=== PATIENT | female | born 1945 | race Two or more races ===

== ENCOUNTER → 2017-10-29 08:00 | Outpatient (CLI) | payer OTHER ==
[~2017-10-29 08:00] MED LIST: AMLODIPINE BESYL5 MG PO; COZAAR100 MG PO; GABAPENTIN300 MG PO; INTESTINEX1 CA1 PO; LOPRESSOR25 MG PO; METFORMIN HCL500 MG PO; NABUMETONE750 MG PO; OXYC1TAB9 PO; PROTONIX40 MG PO; SIMVASTATIN20 MG PO
== END | disposition home or self-care (01) ==
LOC: LAB 08:00 → ADM 09:30 → AMB-ENDOS 11-06 09:30 → EDSTATUS 11-06 09:30
DX: Z01.812 Encounter for preprocedural laboratory examination (principal); Z83.71 Family history of colonic polyps; D12.5 Benign neoplasm of sigmoid colon; D12.4 Benign neoplasm of descending colon; D12.3 Benign neoplasm of transverse colon; D12.2 Benign neoplasm of ascending colon; D12.1 Benign neoplasm of appendix; D12.0 Benign neoplasm of cecum; B35.6 Tinea cruris

== ENCOUNTER → 2017-12-31 | Day surgery (SDC) | payer OTHER | END | disposition home or self-care (01) | LOC: ADM 12-27 09:30 → AMB-ENDOS 07:32 | DX: K64.8 Other hemorrhoids (principal) ==

== ENCOUNTER 2020-02-23 05:31 | Day surgery (SDC) | payer OTHER | END 2020-02-23 10:25 | disposition home or self-care (01) | LOC: AMB-ENDOS 05:31 → CIR.AMB 12:15 | PROVIDERS: ATTEND Surgery | DX: K63.89 Other specified diseases of intestine (principal); K64.8 Other hemorrhoids; Z83.71 Family history of colonic polyps ==

== ENCOUNTER 2022-06-28 06:07 | Day surgery (SDC) | payer OTHER | END 2022-06-28 12:40 | disposition home or self-care (01) | LOC: ADM 06:07 → AMB-ENDOS 06:07 → CIR.AMB 13:45 | PROVIDERS: ATTEND Surgery | DX: K62.1 Rectal polyp (principal); K63.5 Polyp of colon; Z20.822 Contact with and (suspected) exposure to COVID-19; K64.4 Residual hemorrhoidal skin tags; B35.6 Tinea cruris; E11.9 Type 2 diabetes mellitus without complications; Z79.84 Long term (current) use of oral hypoglycemic drugs ==